=== PATIENT | female | born 1965 | race Caucasian/White ===

== ENCOUNTER 2016-06-01 07:24 | Emergency (ER) | payer OTHER, BC ==
[2016-06-01] MEDS ORDERED: ACETAMINOPHEN 500 MG TABLET PO ONE (08:45)
--- NOTE | 2016-06-01 08:48 | ERNOTE ---
Trauma/Assault HPI - Narrative Date of Service: 06/01/16 - General Stated Complaint: FALL-LEFT RIB PAIN Time Seen by Provider: 06/01/16 08:34 Source: patient Exam Limitations: no limitations - Immun/Allergies/Home Medications Immunizations: IMMUNIZATION HX Immunizations Up to Date Yes History of Influenza Vaccine Yes Hx Pneumococcal Vaccination No Allergies/Adverse Reactions: Allergies Penicillins Allergy (Intermediate, Verified 06/01/16 07:33) Shortness of Breath Home Medications: HOME MEDICATIONS Citalopram Hydrobromide [Celexa] 40 mg PO DAILY 05/15/13 [Last Taken Unknown] Glimepiride [Amaryl] 4 mg PO BID 05/15/13 [Last Taken Unknown] Simvastatin 40 mg PO DAILY 05/15/13 [Last Taken Unknown] metFORMIN HCL [Glucophage] 1,000 mg PO BIDWM 05/15/13 [Last Taken Unknown] - History of Present Illness Date (Duration): 06/01/16 Narrative: The Workmen's Comp. injury. Patient who was working, tripped over her shoelace and fell backwards. She is having pain on the left side of her chest and posterior aspect she was wearing her helmet did hit her head but denies any loss of consciousness. Denies any dizziness abdominal pain nausea vomiting no weakness Denies any blurring of vision. She's having a headache frontal in nature 7 out of 10. Pain on the left rib hurts with deep inspiration and movement 8-9 out of 10 Once again this is a workman's comp injury. Location Occurred: Reports: work Pain Location: Reports: head, chest - posterioer aspect of left chest and back Severity: mild Modifying Factors - (Worsens): Reports: movement - with deep inspiration Loss of Consciousness: Reports: no loss of consciousness Associated Symptoms - Trauma: Reports: headache. Denies: confusion, dizziness, lightheadedness, seizures, slurred speech, trouble walking, vision changes, neck pain, chest pain, shortness of breath, abdominal pain, nausea, vomiting Review of Systems - Review of Systems Constitutional: Absent: fever, chills, diaphoresis ENT: Absent: ear discharge Respiratory: Absent: shortness of breath, cough, orthopnea, wheezing Cardiology: Absent: palpitations, syncope, edema Gastrointestinal/Abdominal: Absent: nausea, vomiting, diarrhea, constipation, abdominal pain All Other Systems: All systems neg except as marked - Patient's Past Medical History Patient History - Medical: Anxiety, Diabetes Type 2, Depression Patient History - Cardiac/Respiratory: No pertinent hx, Hyperlipidemia Patient History - Cancer: No Hx of Cancer Patient History - Surgical Procedures: Cholecystectomy, , Hysterectomy , T & A Patient History - Other: None LMP (females 10-50): Menopausal - Social History Living Situations: home Smoking Status: Never smoker Alcohol Use: none Drug Use: benzodiazepine - Immunizations Immunizations Up to Date: Yes Hx Pneumococcal Vaccination: No History of Influenza Vaccine: Yes Physical Exam - Physical Exam General Appearance: Present: wd/wn, alert, no apparent distress Eye Exam: PERRL: bilateral, EOMI: bilateral Ears, Nose, Throat: Present: normal ENT inspection, hearing grossly normal, normal pharynx Neck: Present: normal inspection, nontender, supple, full range of motion Respiratory: Present: no respiratory distress, normal breath sounds, no accessory muscle use, lungs clear, chest tenderness - left posterior aspect upper ribs and left upper back tenderness worse with deep inspiration. Cardiovascular/Chest: Present: regular rate, rhythm, no murmur, normal peripheral pulses Gastrointestinal/Abdominal: Present: normal bowel sounds, nontender, nondistended, soft, no organomegaly Back Exam: Present: normal inspection, normal range of motion, no CVA tenderness , no vertebral tenderness Extremity Exam: Present: normal inspection, non-tender, no edema, normal range of motion Neurological Exam: Present: alert, oriented, normal mood/affect, no motor/ sensory deficits Skin Exam: Present: normal color, warm/dry Lymphatic Exam: Present: no adenopathy ED Progress - Vital Signs Patient's Vital Signs:: I have reviewed the patient's vital signs. Vital Signs: Vital Signs 06/01/16 07:25 Temperature 35.3 C L Pulse Rate 86 Respiratory 16 Rate Blood Pressure 170/108 O2 Sat by Pulse 96 Oximetry - X-Ray X-Ray #1 X-Ray: chest - no acute abnormality Interpretation: Reviewed by me - no acute abnormality X-Ray #2 X-Ray: ribs - no acute abnormality Interpretation: Reviewed by me - CT/Ultrasound CT/Ultrasound Narrative: Ct head without contrast did not show any acute abnormality - Progress/Reassessment Chief Complaint: Fall Progress:: Improved - Transfer of Care Expected Disposition: Discharge Additional Notes: Susu. Next Workman comp injury. Tylenol and Motrin as needed for pain Follow-up Workmen's Comp. doctor today point and has been scheduled. No excessive bending or twisting for the next 4-5 days. Return back to the ER if any change or worsening symptoms Departure Clinical Impression: Rib injury Fall Qualifiers: Encounter type: initial encounter Qualified Code(s): W19.XXXA - Unspecified fall, initial encounter - Departure Disposition: Home self-care Condition: Stable Instructions: Chest Contusion, [id number] Referrals: Milad Crowley MD [Primary Care Provider] -
[2016-06-01 10:33] VITALS: BP 145/88
== END 2016-06-01 10:34 | disposition home or self-care (01) ==
LOC: ER 07:24
DX: S20.212A Contusion of left front wall of thorax, initial encounter (principal); S20.222A Contusion of left back wall of thorax, initial encounter; W01.0XXA Fall on same level from slipping, tripping and stumbling without subsequent striking against object, initial encounter; Y92.63 Factory as the place of occurrence of the external cause; Y99.0 Civilian activity done for income or pay

== ENCOUNTER 2016-08-15 21:11 | Emergency (ER) | payer BC ==
--- NOTE | 2016-08-15 22:19 | ERNOTE ---
Medical Problem HPI - Narrative Date of Service: 08/15/16 - General Chief Complaint: Diabetes Related Problem Time Seen by Provider: 08/15/16 21:40 Source: patient Exam Limitations: no limitations - Immun/Allergies/Home Medications Immunizations: IMMUNIZATION HX Immunizations Up to Date Yes History of Influenza Vaccine Yes Hx Pneumococcal Vaccination No Allergies/Adverse Reactions: Allergies Penicillins Allergy (Intermediate, Verified 06/01/16 07:33) Shortness of Breath Home Medications: HOME MEDICATIONS Citalopram Hydrobromide [Celexa] 40 mg PO DAILY 05/15/13 [Last Taken 08/14/16 08 :00] Glimepiride [Amaryl] 4 mg PO BID 05/15/13 [Last Taken 08/14/16 18:00] Simvastatin 40 mg PO DAILY 05/15/13 [Last Taken 08/14/16 18:00] metFORMIN HCL [Glucophage] 1,000 mg PO BIDWM 05/15/13 [Last Taken 08/14/16] Glimepiride [Amaryl] 4 mg PO BID@0700,1700 #40 tablet 08/15/16 [Last Taken Unknown] metFORMIN HCL [Fortamet] 1,000 mg PO BID #40 tab.er.24 08/15/16 [Last Taken Unknown] - History of Present History Narrative: 51 year old that had forgotten to get her prescription filled her diabetic medications yesterday. She has not taken any of her medications for DM today. Complaints of increased thirst, drinking lots of fluids today. Denies any pain, fevers, chill or fatigue. Timing: constant Severity: mild Modifying Factors - (Improves): Present: other - nothing Modifying Factors - (Worsens): Present: other - nothing Review of Systems - Review of Systems Constitutional: Present: no symptoms reported EYE: Present: no symptoms reported ENT: Present: no symptoms reported Respiratory: Present: no symptoms reported Cardiology: Present: no symptoms reported Gastrointestinal/Abdominal: Present: no symptoms reported Genitourinary: Present: no symptoms reported Musculoskeletal: Present: no symptoms reported Skin: Present: no symptoms reported Neurological: Present: no symptoms reported Endocrine: Present: See HPI Hematologic/Lymphatic: Present: no symptoms reported Psych: Present: no symptoms reported - Patient's Past Medical History Patient History - Medical: Diabetes Type 2 Patient History - Cardiac/Respiratory: No pertinent hx Patient History - Cancer: No Hx of Cancer Patient History - Surgical Procedures: Appendectomy, Cholecystectomy, , Hysterectomy, T & A Patient History - Other: None - Social History Living Situations: alone Abuse History: No History of abuse Psych History: Hx of Anxiety, Hx of Depression, Current tx/ever been on anti- depressants or anti-anxiety meds Smoking Status: Former smoker Have you smoked in the past 12 months: No Do you dip or chew tobacco: No Alcohol Use: none Drug Use: benzodiazepine - Immunizations Immunizations Up to Date: Yes Hx Pneumococcal Vaccination: No History of Influenza Vaccine: Yes Physical Exam - Physical Exam General Appearance: Present: no apparent distress Eye Exam: Normal inspection: bilateral, PERRL: bilateral Ears, Nose, Throat: Present: normal ENT inspection Neck: Present: normal inspection Respiratory: Present: normal breath sounds Cardiovascular/Chest: Present: regular rate, rhythm Gastrointestinal/Abdominal: Present: nontender Extremity Exam: Present: normal inspection Neurological Exam: Present: alert, oriented, normal mood/affect Skin Exam: Present: normal color ED Progress - Results and Orders Patient's Lab Results:: I have reviewed the patient's lab results. - Vital Signs Patient's Vital Signs:: I have reviewed the patient's vital signs. Vital Signs: Vital Signs 08/15/16 08/15/16 21:12 22:08 Temperature 36.4 C L 36.7 C Pulse Rate 107 H 99 Respiratory 18 16 Rate Blood Pressure 149/79 154/96 O2 Sat by Pulse 97 99 Oximetry - Progress/Reassessment Chief Complaint: Diabetes Related Problem Progress:: Unchanged Progress Note-Subjective: 08/15/16 23:40 Insulin 3 units were given for a glucose of 490. There was a downward trend of the glucose after the insulin (415). This trend will continue when the oral medications that were given take effect. 08/15/16 23:43 Departure - Departure Clinical Impression: Diabetes, Hyperglycemia due to type 2 diabetes mellitus Disposition: Home self-care Condition: Good Instructions: Hyperglycemia, [id number] Print Language: [place] Referrals: Milad Crowley MD [Primary Care Provider] - Prescriptions: Glimepiride [Amaryl] 4 mg PO BID@0700,1700 #40 tablet metFORMIN HCL [Fortamet] 1,000 mg PO BID #40 tab.er.24
[2016-08-15] MEDS ORDERED: metFORMIN HCL 500 MG TABLET ONE (22:21)
[2016-08-15] MEDS ORDERED: GLIMEPIRIDE 2 MG TABLET ONE (22:22)
[2016-08-15 22:41] LABS: Anion Gap 15.3 mmol/L (6.8-13.8); BUN/Creatinine Ratio 25.4 (9.0-21.6); Calcium * 9.1 mg/dL (7.9-10.9); Carbon Dioxide 26.7 mmol/L (24-32.6); Estimated Creat Clear 85.3
[2016-08-15] MEDS ORDERED: GLIMEPIRIDE 2 MG TABLET PO ONE (23:00)
[2016-08-15] MEDS ORDERED: metFORMIN HCL 500 MG TABLET PO ONE (23:00)
[2016-08-15] MEDS ORDERED: INSULIN REGULAR, HUMAN 100 UNITS/ML VIAL SC ONE (23:03)
[2016-08-15] MEDS ORDERED: INSULIN REGULAR, HUMAN 100 UNITS/ML VIAL ONE (23:07)
[2016-08-15 23:39] VITALS: BP 145/86
== END 2016-08-15 23:38 | disposition home or self-care (01) ==
LOC: ER 21:11
DX: E11.65 Type 2 diabetes mellitus with hyperglycemia (principal); Z87.891 Personal history of nicotine dependence